=== PATIENT | female | born 1970 | race Caucasian/White ===

== ENCOUNTER 2019-11-10 12:46 | Emergency (ER) | payer OTHER, MEDICAID, SELFPAY ==
--- NOTE | ~2019-11-10 | XR_ITS ---
EXAMINATION: XR knee LT 3V DATE: 11/10/2019 13:14 INDICATION: Left knee injury and pain. TECHNIQUE: 4 views of left knee were obtained. COMPARISON: None. FINDINGS: Bone alignment is normal. No fracture. Joint spaces are normal. There is a moderate-sized k nee joint effusion. IMPRESSION: 1. Moderate-sized left knee joint effusion. Reviewed, dictated and finalized at location A. [employer]
[2019-11-10 12:56] VITALS: BP 154/56; PULSE 92; RESP 16; TEMP 36.9; O2SAT 99
--- NOTE | 2019-11-10 13:31 | ED.GENADULT ---
HPI - General Adult General Chief complaint: Extremity Injury, Lower Stated complaint: Fell left knee pain Time Seen by Provider: 11/10/19 13:20 Source: patient and RN notes reviewed History of Present Illness HPI narrative: HPI narrative: Patient is a 48-year-old female that presents to the urgent care with complaints of left knee pain. Patient states that she was bending over near her trash can on Wednesday night and twisted the left knee outward. Patient denies any history of knee injury. States that she also hit her forehead afterwards. Patient states that she has been using Tylenol for the pain and was just now able to ambulate on the leg today. No other acute complaints or injuries. No acute distress noted. Patient read the plan of care. Related Data Home Medications Medication Instructions Recorded Confirmed Januvia 100 mg PO DAILY 07/22/19 11/10/19 Levemir U-100 Insulin 15 unit SUBCUT DAILY 07/22/19 11/10/19 atorvastatin 80 mg PO DAILY 07/22/19 11/10/19 levothyroxine 150 mcg/day PO DAILY 07/22/19 11/10/19 losartan 50 mg PO DAILY 07/22/19 11/10/19 oxcarbazepine 300 mg PO TID 07/22/19 11/10/19 venlafaxine 25 mg PO BID 07/22/19 11/10/19 celecoxib 200 mg PO BID 10/09/19 11/10/19 estradiol-norethindrone acet 1 tablet PO BID 10/09/19 11/10/19 [Mimvey] mirabegron [Myrbetriq] 25 mg PO DAILY 10/09/19 11/10/19 omeprazole 20 mg PO DAILY 10/09/19 11/10/19 zolpidem 10 mg PO HS PRN 10/09/19 11/10/19 Allergies Allergy/AdvReac Type Severity Reaction Status Date / Time sulfamethoxazole Allergy RASH Verified 11/10/19 13:05 trimethoprim Allergy RASH Verified 11/10/19 13:05 codeine AdvReac Chest Pain Verified 11/10/19 13:05 morphine AdvReac Chest Pain Verified 11/10/19 13:05 Review of Systems Review of Systems: Narrative: CONSTITUTIONAL: Denies fever, chills, or sweats. EYES: Denies visual changes, redness, or discharge. ENT: Denies rhinorrhea, congestion, sore throat, or otalgia. CARDIOVASCULAR: Denies chest pain, palpitations, or edema. RESPIRATORY: Denies cough or dyspnea. GASTROINTESTINAL: Denies abdominal pain, nausea, vomiting, or diarrhea. GENITOURINARY: Denies dysuria or hematuria. SKIN: Denies rash or itching. MUSCULOSKELETAL: Reports of left knee pain and swelling NEUROLOGIC: Denies headache, numbness, or weakness. All other systems reviewed are negative, except as documented in HPI. PMFSH Social History Social History Gender identity (if verbalized by the patient): Female Exam Narrative: Exam Narrative: Exam Narrative: GENERAL: This is a well-nourished, well-developed patient, in no apparent distress. HEAD: normocephalic, atraumatic. EYES: PERRL. Sclera clear/white. Vision is grossly intact. EARS: External ears normal NOSE: External nose normal with no obvious nasal discharge THROAT: Mucous membranes moist NECK: Neck supple CARDIOVASCULAR: Regular rate and rhythm without murmurs, gallops, or rubs. RESPIRATORY: Clear to auscultation. Breath sounds equal bilaterally. No wheezes, rales, or rhonchi. SKIN: warm, intact with no suspicious lesions or rash, good texture and turgor. NEURO: awake, alert, and oriented to person, place and time. There were no obvious focal neurologic abnormalities. EXTREMITIES: Mild edema noted to anterior joint spaces of the left knee, with moderate tenderness. No obvious deformity or fracture noted. Moderate tenderness noted to the lateral aspect of the left knee. Unable to complete drawer test due to pain. Course Vital Signs Vital signs: Vital Signs Temperature 98.5 F 11/10/19 12:56 Pulse Rate 92 11/10/19 12:56 Respiratory Rate 16 11/10/19 12:56 Blood Pressure 154/56 H 11/10/19 12:56 Pulse Oximetry 99 11/10/19 12:56 Temperature 98.5 F 11/10/19 12:56 Pulse Rate 92 11/10/19 12:56 Respiratory Rate 16 11/10/19 12:56 Blood Pressure 154/56 H 11/10/19 12:56 Pulse Oximetry 99 11/10/19 12:56 Reviewed?patient is informed that they may have pre-
== END 2019-11-10 13:40 | disposition home or self-care (01) ==
PROVIDERS: Emergency Provider Nurse Practitioner Family
DX: M25.462 Effusion, left knee (principal)
CPT/HCPCS: 73562; 99213; G0463

== ENCOUNTER 2020-08-16 15:09 | Emergency (ER) | payer MEDICARE, MEDICAID, SELFPAY ==
--- NOTE | 2020-08-16 15:13 | ED.EAR ---
HPI - Ear Problem General Chief complaint: Ear Stated complaint: lt ear pain,fever Source: patient and RN notes reviewed Mode of arrival: ambulatory Limitations: no limitations Related Data Home Medications Medication Instructions Recorded Confirmed Januvia 100 mg PO DAILY 07/22/19 08/16/20 Levemir U-100 Insulin 15 unit SUBCUT DAILY 07/22/19 08/16/20 atorvastatin 80 mg PO DAILY 07/22/19 08/16/20 levothyroxine 150 mcg/day PO DAILY 07/22/19 08/16/20 losartan 50 mg PO DAILY 07/22/19 08/16/20 oxcarbazepine 300 mg PO TID 07/22/19 08/16/20 venlafaxine 25 mg PO BID 07/22/19 08/16/20 celecoxib 200 mg PO BID 10/09/19 08/16/20 estradiol-norethindrone acet 1 tablet PO BID 10/09/19 08/16/20 [Mimvey] omeprazole 20 mg PO DAILY 10/09/19 08/16/20 zolpidem 10 mg PO HS PRN 10/09/19 08/16/20 ferrous sulfate 325 mg (65 mg 325 mg PO DAILY 07/17/20 08/16/20 iron) tablet gabapentin 300 mg tablet,extended 300 mg PO QPM 07/17/20 08/16/20 release 24 hr risperidone 1 mg tablet 1 mg PO DAILY 07/17/20 08/16/20 Allergies Allergy/AdvReac Type Severity Reaction Status Date / Time sulfamethoxazole Allergy RASH Verified 08/16/20 15:27 trimethoprim Allergy RASH Verified 08/16/20 15:27 codeine AdvReac Chest Pain Verified 08/16/20 15:27 morphine AdvReac Chest Pain Verified 08/16/20 15:27 Review of Systems Review of Systems: Narrative: CONSTITUTIONAL: Denies malaise, chills, sweats, or fever. EYES: Denies visual changes, redness, or discharge. ENT: Reports rhinorrhea, congestion, left otalgia and drainage. Denies sinus pain and sore throat. CARDIOVASCULAR: Denies chest pain, palpitations, or edema. RESPIRATORY: Denies cough or dyspnea. GASTROINTESTINAL: Denies abdominal pain, nausea, vomiting, diarrhea SKIN: Denies rash or itching. MUSCULOSKELETAL: Denies myalgia. NEUROLOGIC: Denies headache. 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 Hyperlipidemia Hypertension Hypothyroidism Irritable bowel syndrome Migraines Ovarian cyst 1994, 1996 Pneumonia Vaginal delivery 05/28/88 Pre term female 5lbs 5oz Surgical History Surgical History (Updated 07/17/20 @ 14:34 by Brianna Albert) H/O tubal ligation 2006 History of cryosurgery cervical Hx of cholecystectomy 1992 [place] teeth removed Family History Family History (Updated 07/17/20 @ 14:46 by Brianna Albert) Daughter History of blood clots Grandparent Breast cancer Diabetes mellitus Mother Diabetes mellitus Cerebrovascular accident Hypertension Hyperlipidemia Sibling Diabetes mellitus Hyperlipidemia Hypertension Social History Social History (Updated 07/17/20 @ 14:47 by Brianna Albert) Smoking status: Current every day smoker Tobacco type: cigarettes Additional smoking assessment comments: 1/2 pack a day Alcohol intake: current Drinks per week: 2 Substance use: never Gender identity (if verbalized by the patient): Female Comments At time of signature, agree with nursing past medical, surgical, social and family history. There is no relevant family history pertinent to the presenting complaint Exam Narrative: Exam Narrative: GENERAL: Well-appearing, well-nourished, and in no acute distress. HEAD: Normocephalic EYES: PERRLA, conjunctivae clear ENT: Nares clear, turbinates edematous and erythematous, clear discharge. Mucous membranes moist. Great TM pearly salazar with sharp light reflex, left TM erythematous and bulging; no tragal tenderness. Oropharynx not erythematous without lesions. Tonsils not enlarged and without exudate, no drooling, no hoarseness, no trismus, uvula midline. NECK: Supple. No lymphadenopathy CHEST: Clear to auscultation, breath sounds e
[2020-08-16 15:14] VITALS: BP 147/80; PULSE 109; RESP 14; TEMP 37; O2SAT 100
[2020-08-16 15:32] VITALS: BP 147/80; PULSE 109; RESP 14; TEMP 37; O2SAT 100
== END 2020-08-16 15:40 | disposition home or self-care (01) ==
PROVIDERS: Emergency Provider Nurse Practitioner; PCP Internal Medicine Infectious Disease
DX: H66.002 Acute suppurative otitis media without spontaneous rupture of ear drum, left ear (principal); F17.210 Nicotine dependence, cigarettes, uncomplicated; E11.9 Type 2 diabetes mellitus without complications; E78.5 Hyperlipidemia, unspecified; I10 Essential (primary) hypertension; E03.9 Hypothyroidism, unspecified; F41.9 Anxiety disorder, unspecified; F32.9 Major depressive disorder, single episode, unspecified; D64.9 Anemia, unspecified
CPT/HCPCS: 99213; G0463

== ENCOUNTER 2021-03-01 19:13 | Emergency (ER) | payer MEDICARE, MEDICAID, SELFPAY ==
[2021-03-01 19:21] VITALS: BP 148/78; PULSE 99; RESP 16; TEMP 37; O2SAT 98
--- NOTE | 2021-03-01 19:45 | ED.EYEPROB ---
HPI - Eye Problem General Chief complaint: Eye Problems Stated complaint: head wound Time Seen by Provider: 03/01/21 19:35 Source: patient, RN notes reviewed and old records reviewed Mode of arrival: ambulatory Limitations: no limitations History of Present Illness HPI Narrative: 50 year old female who presents to [facility] care with complaints of 2-3 day duration of having worms coming from her eyes and then today she has noted irritation to her eyes with drainage.Patient verbalizes burning to her eyes with mucoid drainage noted from bilateral eyes with right eye greatest. Patient denies any sharp pain to her eyes or changes in vision, eye movement is intact and pupils react to light equally and briskly.Patient believes she has worms in her eye and on body, no visualized evidence of any possible worms has mucoid strands noted. Patient has no stated fevers, chills or sweats. Patient has history of bipolar disease. MD chief complaint: eye redness and other (drainage right eye) Onset (ago): day(s) Onset description: gradual Duration: progressively worsening Location: right eye, left eye and both eyes Eye Symptoms: burning and discharge Mechanism: none Related Data Home Medications Medication Instructions Recorded Confirmed Januvia 100 mg PO DAILY 07/22/19 03/01/21 Levemir U-100 Insulin 15 unit SUBCUT DAILY 07/22/19 03/01/21 atorvastatin 80 mg PO DAILY 07/22/19 03/01/21 levothyroxine 150 mcg/day PO DAILY 07/22/19 03/01/21 losartan 50 mg PO DAILY 07/22/19 03/01/21 oxcarbazepine 300 mg PO TID 07/22/19 03/01/21 venlafaxine 25 mg PO BID 07/22/19 03/01/21 celecoxib 200 mg PO BID 10/09/19 03/01/21 estradiol-norethindrone acet 1 tablet PO BID 10/09/19 03/01/21 [Mimvey] omeprazole 20 mg PO DAILY 10/09/19 03/01/21 zolpidem 10 mg PO HS PRN 10/09/19 03/01/21 ferrous sulfate 325 mg (65 mg 325 mg PO DAILY 07/17/20 03/01/21 iron) tablet gabapentin 300 mg tablet,extended 300 mg PO QPM 07/17/20 03/01/21 release 24 hr baclofen 10 mg PO DAILY 03/01/21 03/01/21 cariprazine [Vraylar] 1.5 mg PO DAILY 03/01/21 03/01/21 diclofenac sodium 1 g TOPICAL DAILY 03/01/21 03/01/21 valacyclovir 1,000 mg PO DAILY 03/01/21 03/01/21 Allergies Allergy/AdvReac Type Severity Reaction Status Date / Time sulfamethoxazole Allergy RASH Verified 09/25/20 10:04 trimethoprim Allergy RASH Verified 09/25/20 10:04 codeine AdvReac Chest Pain Verified 09/25/20 10:04 morphine AdvReac Chest Pain Verified 09/25/20 10:04 Review of Systems Review of Systems: Narrative: CONSTITUTIONAL: Denies fever, chills, or sweats. EYES: Denies visual changes,positive for redness, or discharge from bilateral eyes with no changes in vision or sharp pain, Mucoid strands noted from eyes patient believes she has worm in her eyes and on her body. ENT: Denies rhinorrhea, congestion, sore throat, or otalgia. CARDIOVASCULAR: Denies chest pain, palpitations, or edema. RESPIRATORY: Denies cough or dyspnea. GASTROINTESTINAL: Denies abdominal pain, nausea, vomiting, or diarrhea. GENITOURINARY: Denies dysuria or hematuria. SKIN: Denies rash or itching.has various scabbed areas on face and abdomen and is being treated by wound care for wound to left forehead which is bandaged MUSCULOSKELETAL: Denies any acute back pain, joint pain, or myalgia. NEUROLOGIC: Denies headache, numbness, or weakness. 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
== END 2021-03-01 20:09 | disposition home or self-care (01) ==
PROVIDERS: Emergency Provider Registered Nurse; PCP Internal Medicine Infectious Disease
DX: H10.33 Unspecified acute conjunctivitis, bilateral (principal); F17.210 Nicotine dependence, cigarettes, uncomplicated; E11.9 Type 2 diabetes mellitus without complications; E78.5 Hyperlipidemia, unspecified; I10 Essential (primary) hypertension; E03.9 Hypothyroidism, unspecified; D64.9 Anemia, unspecified; F41.9 Anxiety disorder, unspecified; F32.9 Major depressive disorder, single episode, unspecified
CPT/HCPCS: 99213; G0463

== ENCOUNTER 2023-10-28 00:45 | Day surgery (SDC) | payer MEDICARE, MEDICAID, SELFPAY ==
[2023-10-07 14:01] VITALS: BMI 28.3
--- NOTE | 2023-10-26 10:29 | SUR.PREOP ---
Patient called regarding upcoming procedure. Reviewed preop instructions, appointment times, and procedure prep.
--- NOTE | 2023-10-28 11:04 | WPDANESEPPF ---
Anes - Initial Pre Proc Eval Procedure: Operation Date: 10/28/23 11:30 Proposed Procedures p Esophagogastroduodenoscopy - Anselmo Garcia MD Date/Time: 10/28/23 11:04 Surgeon: Anselmo Garcia MD Pre Op Diagnosis: GERD Patient Data Age: 52 Gender: F Height: 1.63 m Weight: 75 kg Allergies Allergy/AdvReac Type Severity Reaction Status Date / Time sulfamethoxazole Allergy RASH Verified 10/22/23 14:37 trimethoprim Allergy RASH Verified 10/22/23 14:37 codeine AdvReac Chest Pain Verified 10/22/23 14:37 morphine AdvReac Chest Pain Verified 10/22/23 14:37 Home Medications Medication Instructions Recorded Confirmed Type atorvastatin 80 mg PO DAILY 07/22/19 10/22/23 History celecoxib 200 mg capsule 200 mg PO BID 10/09/19 10/22/23 History loratadine 10 mg tablet (Claritin) 10 mg PO DAILY #14 tabs 10/09/19 10/22/23 Rx omeprazole 20 mg tablet,delayed 20 mg PO DAILY 10/09/19 10/22/23 History release zolpidem 10 mg tablet 10 mg PO HS PRN sleeplessness 10/09/19 10/22/23 History ferrous sulfate 325 mg (65 mg 325 mg PO 2XW 07/17/20 10/22/23 History iron) tablet cariprazine 1.5 mg capsule 6 mg PO DAILY 03/01/21 10/22/23 History (Vraylar) nystatin 100,000 unit/gram topical 1 applic topical BID #60 grams 01/04/23 10/22/23 Rx powder estradiol-norethindrone acet 1 2 tablet PO DAILY #84 tabs 06/07/23 10/22/23 Rx mg-0.5 mg tablet (Mimvey) valacyclovir 1 gram tablet 1,000 mg PO DAILY #90 tabs 06/28/23 10/22/23 Rx albuterol 90 mcg/actuation aerosol 1 mcg inhalation Q6-8H PRN 09/23/23 10/22/23 History inhaler Shortness Of Breath baclofen 10 mg tablet 10 mg PO BID 09/23/23 10/22/23 History gabapentin 300 mg capsule 600 mg PO TID 09/23/23 10/22/23 History levothyroxine 125 mcg/day PO DAILY 09/23/23 10/22/23 History nitroglycerin 0.4 mg sublingual 0.4 mg sublingual Q5M PRN Chest 09/23/23 10/22/23 History tablet Pain tirzepatide 7.5 mg/0.5 mL 7.5 mg subcut WEEKLY 09/23/23 10/22/23 History subcutaneous pen injector (Mounjaro) alprazolam 1 mg tablet 1 mg PO QID 10/07/23 10/22/23 History aspirin 81 mg tablet,delayed 81 mg PO DAILY 10/07/23 10/22/23 History release (Adult Aspirin Regimen) duloxetine 60 mg capsule,delayed 60 mg PO DAILY 10/07/23 10/22/23 History release metoprolol tartrate 25 mg tablet 25 mg PO BID 10/07/23 10/22/23 History oxycodone-acetaminophen 5 mg-325 1 tablet PO Q6H PRN Pain 10/07/23 10/22/23 History mg tablet topiramate 50 mg tablet 50 mg PO BID 10/07/23 10/22/23 History Patient hx anesthesia problems: none Family hx anesthesia problems: none Results Review: All pre-operative results and documents have been reviewed as part of the pre-operative evaluation. 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 Hyperlipidemia Hypertension Hypothyroidism Irritable bowel syndrome Migraines Mixed irritable bowel syndrome Obesity Ovarian cyst 1994, 1996 Pneumonia Tobacco abuse Vaginal delivery x1 Surgical History Surgical History H/O tubal ligation 2006 History of colposcopy 08/13/21 History of cryosurgery cervical Hx of cholecystectomy 1992 Previous section x1 [place] teeth removed Family History Family History Daughter History of blood clots Grandparent Breast cancer Diabetes mellitus Mother Diabetes mellitus Cerebrovascular accident Hypertension Hyperlipidemia Sibling Diabetes mellitus Hyperlipidemia Hypertension Social History Social History (Reviewed 0
[2023-10-28 11:14] LABS: Glucose Point of Care 94 mg/dl (65-105)
[2023-10-28 11:15] VITALS: BP 102/49; PULSE 109; RESP 18; TEMP 36.5; O2SAT 100
[2023-10-28] MEDS: LACTATED RINGERS 1,000 ML 150 ML IV CONT (11:18)
--- NOTE | 2023-10-28 11:30 | PM.HPGS ---
History of Present Illness History of Present Illness Consent: Risks, benefits, and alternatives have been discussed and questions answered. Patient agrees to proceed with procedure. Chief complaint: GERD Narrative: Ana Resendez is a 52 year old female with dysphagia to pills for over a year, also gerd but no issues with her ppi. History of IBS and already had colonoscopy. Review of Systems Constitutional: Constitutional: Denies headache(s) and Denies weakness Eyes: Eyes: Denies blurry vision ENT: Reports Normal hearing present, Denies headache(s) and Denies neck pain Cardiovascular: Cardiovascular: Denies chest pain and Denies dyspnea Respiratory: Respiratory: Denies dyspnea Gastrointestinal: Gastrointestinal: Reports no additional gastrointestinal complaints Genitourinary: Genitourinary: Denies dysuria Musculoskeletal: Musculoskeletal: Denies neck pain Integumentary/Breasts: Skin/Breast: Denies dry skin Neurologic: Reports Normal hearing present, Denies headache(s) and Denies weakness Psychiatric: Psychiatric: Denies anxiety Endocrine: Endocrine: Denies change in body appearance Hematologic/Lymphatic: Hematologic/Lymphatic: Denies easy bleeding Allergic/Immunologic: Allergic/Immunologic: Denies urticaria PMFSH Past Medical History Medical History Abnormal Pap smear of cervix 07/17/20, ASCUS, HPV neg 07/22/21, HPV+ Anemia Anxiety Bipolar 1 disorder, mixed delivery delivered 12/27/92 Pre term male 5lbs 9oz Colon cancer screening Depression Diabetes Dysphagia 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 Hyperlipidemia Hypertension Hypothyroidism Irritable bowel syndrome Migraines Mixed irritable bowel syndrome Obesity Ovarian cyst 1994, 1996 Pneumonia Tobacco abuse Vaginal delivery x1 Surgical History Surgical History H/O tubal ligation 2006 History of colposcopy 08/13/21 History of cryosurgery cervical Hx of cholecystectomy 1992 Previous section x1 [place] teeth removed Family History Family History Daughter History of blood clots Grandparent Breast cancer Diabetes mellitus Mother Diabetes mellitus Cerebrovascular accident Hypertension Hyperlipidemia Sibling Diabetes mellitus Hyperlipidemia Hypertension Social History Social History Smoking packs per day: 0.5 Smoking cigarettes per day: 10.0 Years smoked: 20 Smoking pack-years: 10.00 Smoking status: Current every day smoker Tobacco type: cigarettes and e-cigarettes/vaping Additional smoking assessment comments: 1/2 pack a day Alcohol intake: current Drinks per week: 0 Alcohol use details: ONCE A MONTH Substance use: never Substance use type: does not use Living arrangements: alone Gender identity (if verbalized by the patient): Female Spiritual care concerns: No Meds Home Medications and Allergies Home Medications Medication Instructions Recorded Confirmed Type atorvastatin 80 mg PO DAILY 07/22/19 10/22/23 History celecoxib 200 mg capsule 200 mg PO BID 10/09/19 10/22/23 History loratadine 10 mg tablet (Claritin) 10 mg PO DAILY #14 tabs 10/09/19 10/22/23 Rx omeprazole 20 mg tablet,delayed 20 mg PO DAILY 10/09/19 10/22/23 History release zolpidem 10 mg tablet 10 mg PO HS PRN sleeplessness 10/09/19 10/22/23 History ferrous sulfate 325 mg (65 mg 325 mg PO 2XW 07/17/20 10/22/23 History iron) tablet cariprazine 1.5 mg capsule 6 mg PO DAILY 03/01/21 10/22/23 History (Vraylar) nystatin 100,000 unit/gram topical 1 applic topical BID #60 grams 01/04/23 10/22/23 Rx powder estradiol-norethindrone acet 1 2 tablet PO DAILY #84 tabs 06/07/23 10/22/23 Rx mg-0.5 mg tablet (Mimvey) valacyclovir 1 gram tablet
[2023-10-28] MEDS: BENZOCAINE (*SP) 60 ML SPRAY CAN (HURRICAINE) 1 SPRAY MUCOUS MEM (11:33)
[2023-10-28 11:49] VITALS: BP 97/47; PULSE 73; RESP 14; O2SAT 100
[2023-10-28 11:59] VITALS: BP 114/69; PULSE 69; RESP 15; O2SAT 100
[2023-10-28 12:09] VITALS: BP 121/63; PULSE 70; RESP 20; O2SAT 100
== END 2023-10-28 12:20 | disposition home or self-care (01) ==
PROVIDERS: PCP Hospitalist; Visit Provider Internal Medicine Gastroenterology
PROC: 0DJ08ZZ Inspection of Upper Intestinal Tract, Via Natural or Artificial Opening Endoscopic (ICD-10-PCS; CPT 43235; principal; 2023-10-28 11:30)
DX: K29.50 Unspecified chronic gastritis without bleeding (principal); K31.84 Gastroparesis; K21.9 Gastro-esophageal reflux disease without esophagitis; D64.9 Anemia, unspecified; F41.9 Anxiety disorder, unspecified; F32.A Depression, unspecified; E11.9 Type 2 diabetes mellitus without complications; I10 Essential (primary) hypertension; E78.5 Hyperlipidemia, unspecified; E03.9 Hypothyroidism, unspecified; K58.2 Mixed irritable bowel syndrome; E66.9 Obesity, unspecified; F17.210 Nicotine dependence, cigarettes, uncomplicated; F17.290 Nicotine dependence, other tobacco product, uncomplicated; Z79.51 Long term (current) use of inhaled steroids; Z79.85 Long-term (current) use of injectable non-insulin antidiabetic drugs; Z79.82 Long term (current) use of aspirin
CPT/HCPCS: 43239; 82948; 88305; 88313; 88342; J2001; J2704; J7120

== ENCOUNTER 2024-01-20 16:22 | Outpatient (CLI) | payer MEDICARE, MEDICAID, SELFPAY ==
--- NOTE | ~2024-01-20 | XR_ITS ---
EXAMINATION: XR lumbar spine min 4V DATE: 01/20/2024 16:46 INDICATION: Spondylosis without myelopathy or radiculopathy. TECHNIQUE: 4 views of lumbar spine including flexion and extension views were obtained. COMPARISON: None. FINDINGS: There is 3 mm retrolisthesis of L3 on L4. There is 4 degrees dextrocurvature of thoracolumb ar spine. There is mild chronic anterior wedging of T12 and L1 vertebral bodies. There is severely de creased disc height at T10-T11 and T11-T12, mildly decreased disc height at L2-L3, moderately decreas ed disc height at L3-L4, and severely decreased disc height at L4-L5 and L5-S1. There is no abnormal motion with flexion or extension. There is multilevel facet joint osteoarthritis, severe in lower lum bar spine. The ventricles are normal in size. Surgical clips in the right upper quadrant are likely f rom cholecystectomy. IMPRESSION: 1. Severe lumbar and lower thoracic spondylosis. Reviewed, dictated and finalized at location E.
== END 2024-01-20 16:23 | disposition home or self-care (01) ==
LOC: ANHIMG 16:24
PROVIDERS: PCP Hospitalist; Visit Provider Neurological Surgery
DX: M47.816 Spondylosis without myelopathy or radiculopathy, lumbar region (principal); M47.894 Other spondylosis, thoracic region
CPT/HCPCS: 72110